=== PATIENT | female | born 1940 | race Caucasian/White ===

== ENCOUNTER → 2016-12-11 | Outpatient (CLI) | payer OTHER, MEDICARE | LOC: CIMAGING 09:42 | DX: Z12.31 Encounter for screening mammogram for malignant neoplasm of breast (principal) | CPT/HCPCS: G0202 ==

== ENCOUNTER → 2017-12-17 | Outpatient (CLI) | payer OTHER, MEDICARE | LOC: CIMAGING 08:17 | PROVIDERS: ATTEND Family Medicine | DX: Z12.31 Encounter for screening mammogram for malignant neoplasm of breast (principal) ==

== ENCOUNTER → 2019-03-10 | Outpatient (CLI) | payer OTHER, MEDICARE | LOC: CIMAGING 07:24 ==